=== PATIENT | female | born 1970 | race Caucasian/White ===

== ENCOUNTER → 2017-01-01 | Outpatient (CLI) | payer OTHER ==
[2017-01-01 09:20] LABS: BASOPHIL % 0.3 % (0-2); PLATELET COUNT 303 x10^3mcL (130-400); RED CELL DISTRIBUTION WIDTH 13.1 % (11.5-14.5)
[2017-01-01 09:52] LABS: ALBUMIN 4.3 g/dL (3.4-5.0); ALKALINE PHOSPHATASE 57 U/L (46-116); ALT/SGPT 43 U/L (14-59); AST/SGOT 25 U/L (15-37); CALCIUM 9.2 mg/dL (8.5-10.1); CARBON DIOXIDE 29.7 mmol/L (21-32); CHLORIDE SERUM 102 mmol/L (98-107); CREATININE SERUM 0.7 mg/dL (0.6-1.0); GFR1 > 60 mL/min; GLUCOSE SERUM 133 mg/dL (74-106); HDL CHOLESTEROL 46 mg/dL (40-60); POTASSIUM SERUM 4.4 mmol/L (3.5-5.1); SODIUM SERUM 140 mmol/L (136-145); TOTAL PROTEIN, SERUM 8.2 g/dL (6.4-8.2); TRIGLYCERIDES 77 mg/dL (<150)
[2017-01-01 09:54] LABS: CHOLESTEROL 108 mg/dL (<200); CHOLESTEROL/HDL RATIO 2.3
[2017-01-01 10:01] LABS: T3 TOTAL 1.2 ng/mL
[2017-01-01 10:06] LABS: FREE T4 1.16 ng/dL (0.76-1.46); FREE THYROXINE INDEX 3.3 ug/dL (1.4-4.5); T4(THYROXINE) 10.1 ug/dL (4.7-13.3)
== END | disposition home or self-care (01) ==
LOC: LB 08:30
PROVIDERS: Family Medicine
DX: E11.9 Type 2 diabetes mellitus without complications (principal)
CPT/HCPCS: 84439

== ENCOUNTER → 2018-02-15 | Outpatient (CLI) | payer OTHER ==
[2018-02-15 11:17] LABS: BASOPHIL % 0.3 % (0-2); PLATELET COUNT 325 x10^3mcL (130-400); RED CELL DISTRIBUTION WIDTH 13.3 % (11.5-14.5)
[2018-02-15 11:24] LABS: UA SPECIFIC GRAVITY 1.025 (1.005-1.035); microscopic required? YES; urine erythrocyte NEGATIVE (NEGATIVE)
[2018-02-15 11:32] LABS: ALBUMIN 4.4 g/dL (3.4-5.0); ALKALINE PHOSPHATASE 64 U/L (46-116); ALT/SGPT 78 U/L (14-59); AST/SGOT 44 U/L (15-37); BILIRUBIN TOTAL 0.7 mg/dL (0.20-1.00); CALCIUM 9.5 mg/dL (8.5-10.1); CARBON DIOXIDE 30.1 mmol/L (21-32); CHLORIDE SERUM 100 mmol/L (98-107); CREATININE SERUM 0.7 mg/dL (0.6-1.0); FREE T4 1.28 ng/dL (0.76-1.46); GFR1 > 60 mL/min; GLUCOSE SERUM 139 mg/dL (74-106); HDL CHOLESTEROL 44 mg/dL (40-60); POTASSIUM SERUM 4.6 mmol/L (3.5-5.1); SODIUM SERUM 138 mmol/L (136-145); TRIGLYCERIDES 83 mg/dL (<150)
[2018-02-15 11:37] LABS: CHOLESTEROL 121 mg/dL (<200); CHOLESTEROL/HDL RATIO 2.8; TOTAL PROTEIN, SERUM 8.3 g/dL (6.4-8.2)
[2018-02-16 09:42] LABS: VITAMIN D 25-HYDROXY 18.3 ng/mL (30.0-100.0)
[2018-02-16 13:20] LABS: microalbumin:creatinine ratio 3.7 (0.0-30.0)
== END | disposition home or self-care (01) ==
LOC: LB 09:55
PROC: BH02ZZZ Plain Radiography of Bilateral Breasts (ICD-10-PCS; principal; 2018-02-15)
DX: E11.40 Type 2 diabetes mellitus with diabetic neuropathy, unspecified (principal); Z12.31 Encounter for screening mammogram for malignant neoplasm of breast
CPT/HCPCS: 77067; 84439

== ENCOUNTER 2018-08-14 09:03 | Emergency (ER) | payer OTHER ==
[~2018-08-14] VITALS: Ht 160 cm; Wt 84.4 kg
[2018-08-14 09:15] VITALS: BP 141/91; Ht 160 cm; Wt 84.4 kg
[2018-08-14 10:14] LABS: BASOPHIL % 0.4 % (0-2); PLATELET COUNT 282 x10^3mcL (130-400); RED CELL DISTRIBUTION WIDTH 13.6 % (11.5-14.5)
[2018-08-14 10:20] LABS: CALCIUM 9.1 mg/dL (8.5-10.1); CARBON DIOXIDE 28.9 mmol/L (21-32); CHLORIDE SERUM 102 mmol/L (98-107); CREATININE SERUM 0.7 mg/dL (0.6-1.0); GFR1 > 60 mL/min; GLUCOSE SERUM 203 mg/dL (74-106); POTASSIUM SERUM 3.8 mmol/L (3.5-5.1); SODIUM SERUM 137 mmol/L (136-145)
[2018-08-14 10:23] LABS: ALBUMIN 4.1 g/dL (3.4-5.0); ALKALINE PHOSPHATASE 67 U/L (46-116); ALT/SGPT 59 U/L (14-59); AST/SGOT 33 U/L (15-37); BILIRUBIN TOTAL 0.54 mg/dL (0.20-1.00); TOTAL PROTEIN, SERUM 7.8 g/dL (6.4-8.2)
== END 2018-08-14 13:45 | disposition home or self-care (01) ==
LOC: ED 09:03
PROVIDERS: Emergency Medicine
DX: R22.1 Localized swelling, mass and lump, neck (principal); E11.9 Type 2 diabetes mellitus without complications; E78.00 Pure hypercholesterolemia, unspecified
CPT/HCPCS: 36415

== ENCOUNTER → 2018-08-15 | Outpatient (CLI) | payer OTHER ==
[2018-08-15 17:01] LABS: FREE T4 1.07 ng/dL (0.76-1.46); FREE THYROXINE INDEX 2.3 ug/dL (1.4-4.5); T4(THYROXINE) 7.7 ug/dL (4.7-13.3)
[2018-08-15 17:19] LABS: T3 TOTAL 1.15 ng/mL
== END | disposition home or self-care (01) ==
LOC: LB 15:54
PROVIDERS: Family Medicine
DX: E07.9 Disorder of thyroid, unspecified (principal)
CPT/HCPCS: 84439

== ENCOUNTER 2018-08-23 08:09 | Day surgery (SDC) | payer OTHER ==
[2018-08-21 16:27] LABS: CREATININE SERUM 0.7 mg/dL (0.6-1.0)
[~2018-08-23] VITALS: Ht 160 cm; Wt 84.4 kg
[2018-08-23 08:20] VITALS: BP 118/73
--- NOTE | 2018-08-23 08:20 | NUR ---
ADMIT TO OPS FOR THYROID PROCEDURE. NPO SINCE [id number]. ORIENT TO UNIT AND PLAN OF CARE. REVIEWED PROCEDURE OF THYROID FNA AND BIOPSY AND CT SCAN FOLLOWING. PT VERBALIZED UNDERSTANDING. PT REPORTS "HAS METAL CLIP IN RIGHT BREAST FROM PREVIOUS BIOPSY." PT IS DIABETIC. NO AM MEDS TAKEN. SIDE RAILS UP X2. CALL LIGHT IN REACH. KING WIPES COMPLETED. CALL TO LAZARA MARTINO IN XRAY TO NOTIFY OF PTS ARRIVAL.
--- NOTE | 2018-08-23 09:00 | NUR ---
LAZARA RN HERE FROM RADIOLOGY. UPDATED PT WITH PLAN OF CARE. REPORTS "NO ALLERGIES TO CONTRAST DYE." UPDATED WITH NEED TO HOLD METFORMIN FOR [address] VERBALIZED UNDERSTANDING. TAKEN TO XRAY VIA WHEELCHAIR AT THIS TIME.
[2018-08-23 10:15] VITALS: BP 138/85
--- NOTE | 2018-08-23 10:15 | NUR ---
RECEIVED PT BACK VIA WHEELCHAIR FROM CT SCAN AWAKE AND ALERT. HOB ELEVATED. NO RESP DISTRESS. BANDAID IN PLACE TO LEFT NECK. NO BLEEDING, SWELLING OR HEMATOMA NOTED. C/O TENDERNESS TO TOUCH TO SITE AND BACK OF NECK. HR=63. RESP 18 EVEN. UZ=885/75. WILL CONTINUE TO MONITOR.
[2018-08-23 10:30] VITALS: BP 138/80
--- NOTE | 2018-08-23 10:45 | NUR ---
LAZARA MARTINO HERE. REVIEWED PLAN OF CARE. PT CONTINUES TO C/O PAIN TO LEFT NECK AND BACK OF NECK 11/06. WILL CHECK WITH RADIOLOGIST FOR ORAL PAIN MEDICATION.
[2018-08-23 11:05] VITALS: BP 120/76
--- NOTE | 2018-08-23 11:05 | NUR ---
TOLERATES ORAL FLUIDS WELL. ARMBAND IDENTIFIED. PAIN CONTINUES / WITH SORE THROAT. NO SWELLING OR BLEEDING NOTED. BANDAID IN PLACE. MED WITH TYLENOL 650MG PO ORDERED.
--- NOTE | 2018-08-23 11:50 | NUR ---
REPORTS "PAIN BETTER 10." BANDAID TO LEFT NECK CDI. NO SWELLING OR HEMATOMA NOTED. TOLERATES PO FLUIDS WELL.
--- NOTE | 2018-08-23 12:13 | NUR ---
PT RESTING. NO DISTRESS. RESP EVEN UNLABORED. BANDAID CDI TO LEFT NECK. PREPARING DISCHARGE INFORMATION.
[2018-08-23 12:20] VITALS: BP 106/56
--- NOTE | 2018-08-23 12:40 | NUR ---
PT AMBULATED WELL TO BATHROOM AND VOIDED. REPORTS "PAIN MUCH BETTER 3/10." BANDAID REMAINS CLEAN AND DRY. NO SWELLING OR HEMATOMA NOTED. REVIEWED WITH PT AND DISCHARGE INSTRUCTIONS, ACTIVITY, DIET, S/S OF WHEN TO CALL MD FOR ANY COMPLICATIONS. TO FOLLOWUP WITH DR RAMIREZ AND ALREADY HAS APPOINTMENT WITH ENT. PT VERBALIZED UNDERSTANDING. IV REMOVED CATH TIP INTACT. ARMBAND REMOVED. DC VIA WHEELCHAIR TO PRIVATE CAR WITH DRIVING.
== END 2018-08-23 12:40 | disposition home or self-care (01) ==
LOC: DS 08:09 → US 09:00 → DS 12:40
PROVIDERS: Family Medicine
PROC: 0GBG3ZX Excision of Left Thyroid Gland Lobe, Percutaneous Approach, Diagnostic (ICD-10-PCS; principal; 2018-08-23)
DX: E04.1 Nontoxic single thyroid nodule (principal); E11.40 Type 2 diabetes mellitus with diabetic neuropathy, unspecified; E66.9 Obesity, unspecified; Z79.84 Long term (current) use of oral hypoglycemic drugs
CPT/HCPCS: 60100; J2001; Q9967

== ENCOUNTER 2020-03-18 09:03 | Emergency (ER) | payer OTHER, SELFPAY ==
[~2020-03-18] VITALS: Ht 157.5 cm; Wt 83.9 kg
[2020-03-18 09:04] VITALS: Ht 157.5 cm; Wt 83.9 kg
[2020-03-18 12:10] VITALS: BP 122/75
== END 2020-03-18 12:10 | disposition home or self-care (01) ==
LOC: ED 09:03
DX: U07.1 COVID-19 (principal); E11.9 Type 2 diabetes mellitus without complications; E78.00 Pure hypercholesterolemia, unspecified
CPT/HCPCS: 87804; U0003